=== PATIENT | female | born 1940 | race Caucasian/White ===

== ENCOUNTER 2024-01-14 14:11 | Emergency (ER) | payer OTHER ==
--- NOTE | 2024-01-14 14:47 | RAD REPORT ---
EXAM DESCRIPTION: CT - Head Brain Wo Cont - 01/14/2024 2:38 pm CLINICAL HISTORY: SYNCOPE Headache COMPARISON: No comparisons TECHNIQUE: All CT scans are performed using dose optimization technique as appropriate and may inclu de automated exposure control or mA/KV adjustment according to patient size. FINDINGS: Along the anterior falx is there is a 4.0 x 3.9 cm slightly hyperdense mass is present wit h significant surrounding edema in the anterior frontal lobes.There is mild pjgj-[id number] midline bigg ft present measuring 8 mm. No hemorrhage or hydrocephalus. The paranasal sinuses and mastoids are clear. The calvarium is intact. IMPRESSION: Midline anterior 4 cm intracranial mass is seen with moderate surrounding edema and mild [id number] midline shift of 8 mm. This may represent a meningioma, however MRI of the brain with contrast would be recommended for further evaluation. No hemorrhage or hydrocephalus evident.
--- NOTE | 2024-01-14 15:00 | RAD REPORT ---
EXAM DESCRIPTION: RAD - Chest Single View - 01/14/2024 2:52 pm CLINICAL HISTORY: syncope, right shoulder Chest pain. COMPARISON: No comparisons FINDINGS: Portable technique limits examination quality. The lungs are grossly clear. The heart is mildly enlarged. Fracture of the distal right clavicle susp ected.
--- NOTE | 2024-01-14 15:00 | RAD REPORT ---
EXAM DESCRIPTION: RAD - Shoulder Right 2 View - 01/14/2024 2:52 pm CLINICAL HISTORY: fall trauma COMPARISON: <Comparisons> FINDINGS: Fracture of the distal right clavicle is seen, without dislocation. Bones are mildly demin eralized.
[2024-01-14 15:18] LABS: Absolute Eosinophils 0.1 K/uL (0-0.5); Absolute Lymphocytes (CBC) 0.9 K/uL (0.7-4.9); Absolute Monocytes 0.8 K/uL (0.1-1.3); Absolute Neutrophil 11.5 K/uL (1.8-8.0); Basophils % 0.2 % (0-1.3); Eosinophils % 0.4 % (0-4.4); Hematocrit 39.1 % (36.0-45.0); Hemoglobin 12.2 g/dL (12.0-15.0); Lymphocytes % 6.8 % (15.3-44.8); MCH 21.7 pg (27.0-35.0); MCHC 31.2 g/dL (32.0-36.0); MCV 69.6 fL (80-100); MPV 8.7 fL (7.6-11.3); Monocytes % 6.2 % (3.3-12.3); Neutrophils % 86.4 % (41.7-73.7); Nucleated Red Blood Cells % 0.1 % (0-0); Platelets 191 thou/uL (152-406); RBC Red Blood Cell Count 5.62 M/uL (3.86-4.86); Red Cell Distribution Width 16.4 % (12.1-15.2)
[2024-01-14 15:23] LABS: PT Prothrombin Time 12.4 SECONDS (9.4-12.5); Protime INR 1.11
[2024-01-14 15:39] LABS: AST/SGOT 11 U/L (15-37); Albumin 3.7 g/dL (3.4-5.0); Albumin/Globulin Ratio 1.2 (1.1-1.8); Alkaline Phosphatase 53 U/L (45-117); Anion Gap 7.8 mEq/L (5.0-15.0); BUN Blood Urea Nitrogen 18 mg/dL (7-18); Bicarbonate 30 mEq/L (21-32); Bilirubin Direct 0.4 mg/dL (0-0.2); Bilirubin Indirect, Calculated 1.1 mg/dL (0.2-0.8); Bilirubin Total 1.5 mg/dL (0.2-1.0); Globulin 3.2 g/dL (2.3-3.5); Glomerular Filtration Rate 52 ml/min (=/>90); Glucose Level 127 mg/dL (74-106); Magnesium 1.9 mg/dL (1.6-2.4); Potassium 3.8 mEq/L (3.5-5.1); Protein, Total 6.9 g/dL (6.4-8.2); Sodium Level 140 mEq/L (136-145); Troponin High Sensitivity 9.6 pg/mL (<58.9)
[2024-01-14 15:50] LABS: ALT/SGPT < 14 U/L (13-56)
[2024-01-14 16:03] LABS: Anisocytosis 1+; Blood Morphology Comment NOTED (NOT SEEN); Hypochromasia 1+; Platelet Estimate ADEQ; Poikilocytosis 1+; White Blood Cell Scan OK (OK)
--- NOTE | 2024-01-14 16:32 | ER ---
Nurse's Notes [facility] Name: Sharron Sweeney Age: 83 yrs Sex: Female : 1940 Arrival Date: 01/14/2024 Time: 14:11 Bed 7 Private MD: Diagnosis: Syncope, right clavicle fracture nondisplaced, known beta thalassemia Presentation: 01/13 14:19 Chief complaint: EMS states: toned out for syncopal episode. Sitting at desk and became me1 dizzy and passed out. c/o pain to right shoulder. Bruise noted above right eye. 20g LAC given zofran 4 mg by EMS. Coronavirus screen: Vaccine status: Patient reports receiving the 2nd dose of the covid vaccine. Ebola Screen: No symptoms or risks identified at this time. Initial Sepsis Screen: Does the patient meet any 2 criteria? No. Patient's initial sepsis screen is negative. Does the patient have a suspected source of infection? No. Patient's initial sepsis screen is negative. Risk Assessment: Do you want to hurt yourself or someone else? Patient reports no desire to harm self or others. Onset of symptoms was January 14, 2024. 14:19 Method Of Arrival: EMS: [email or web address] [place] Acuity: ZACARIAS 3 me1 Triage Assessment: 14:23 General: Appears uncomfortable, well groomed, well developed, well nourished, Behavior me1 is calm, cooperative, appropriate for age. Pain: Complains of pain in anterior aspect of right shoulder Pain does not radiate. Pain currently is 0 out of 10 on a pain scale. at worst was 6 out of 10 on a pain scale. Quality of pain is described as sharp, Pain began suddenly, Is continuous. EENT: No signs and/or symptoms were reported regarding the EENT system. Neuro: Level of Consciousness is awake, alert, obeys commands, Oriented to person, place, time, situation, Appropriate for age Reports dizziness, and diaphoresis right before passing out onto the floor from a sitting position a syncopal episode. Cardiovascular: Patient's skin is warm and dry. Respiratory: Airway is patent Respiratory effort is even, unlabored, Respiratory pattern is regular, symmetrical. GI: No signs and/or symptoms were reported involving the gastrointestinal system. : No signs and/or symptoms were reported regarding the genitourinary system. Derm: Skin is intact, is healthy with good turgor, Skin is pink, warm \T\ dry. Musculoskeletal: Reports pain in right shoulder. Injury Description: fall onto floor from sitting. Historical: - Allergies: 14:23 Codeine; me1 - PMHx: 14:23 Hypertensive disorder; me1 14:23 carotid artery stenosis; me1 - PSHx: 14:23 Coronary Angioplasty; ankle surgery; Cholecystectomy; me1 - Immunization history:: Adult Immunizations up to date. - Infectious Disease History:: Denies. - Social history:: Smoking status: Patient denies any tobacco usage or history of. Screenin:27 [facility] ED Fall Risk Assessment (Adult) History of falling in the last 3 months, ia1 including since admission Yes- physiologic fall (2 pts) Confusion or Disorientation Intoxicated or Sedated No (0 pts) Impaired Gait No (0 pts) Mobility Assist Device Used No (0 pt) Altered Elimination No (0 pt) Score/Fall Risk Level 0 - 2 = Low Risk Maintained a safe environment, Provided non-skid footwear, Hourly rounding (assess needs \T\ fall precautionary measures) done. Abuse screen: Denies threats or abuse. Nutritional screening: No deficits noted. Tuberculosis screening: No symptoms or risk factors identified. Assessment: 14:27 General: See triage assessment. . me1 15:01 Reassessment: Patient and/or family updated on plan of care and expected duration. Pain rs5 level reassessed. Patient is alert, oriented x 3, equal unlabored respirations, skin warm/dry/pink. Patient states feeling better. Patient states symptoms have improved. Pain: Complains of pain in right shoulder Pain currently is 3 out of 10 on a pain scale. Quality of pain is described as aching, Is continuous. Neuro: Level of Consciousness is awake, alert, obeys commands, Oriented to person, place, time, situation. Cardiovascular: Patient's skin is warm and dry. Rhythm is regular. Respiratory: Airway is patent Respiratory effort is even, unlabored, Respiratory pattern is regular, symmetrical. GI: Abdomen is round non-distended. : No signs and/or symptoms were reported regarding the genitourinary system. EENT: No signs and/or symptoms were reported regarding the EENT system. Derm: Skin is intact, Skin is pink, warm \T\ dry. Musculoskeletal: Range of motion: limited in right shoulder. 16:01 Reassessment: Patient and/or family updated on plan of care and expected duration. Pain rs5 level reassessed. Patient is alert, oriented x 3, equal unlabored respirations, skin warm/dry/pink. 17:00 Reassessment: No changes from previously documented assessment. rs5 Vital Signs: 14:19 BP 169 / 63; Pulse 60; Resp 16; Temp 97.5; Pulse Ox 98% on R/A; Weight 65.77 kg; Height me1 5 ft. 0 in. ; Pain 6/10; 15:30 BP 178 / 62; Pulse 66; Resp 17; Pulse Ox 96% on R/A; me1 16:00 BP 172 / 63; Pulse 64; Resp 16; Pulse Ox 97% ; me1 16:30 BP 175 / 64; Pulse 67; Resp 16; Temp 98.1; Pulse Ox 100% on R/A; me1 14:19 Body Mass Index 28.32 (65.77 kg, 152.4 cm) me1 14:19 Pain Scale: Adult me1 ED Course: 14:19 Patient arrived in ED. me1 14:22 Lola Preciado MD is Attending Physician. sp3 14:23 Triage completed. me1 14:23 Arm band placed on Patient placed in an exam room. me1 14:27 Patient has correct armband on for positive identification. Bed in low position. Call me1 light in reach. Side rails up X2. Provided Education on: POC. Verbalized understanding. . Client placed on continuous cardiac and pulse oximetry monitoring. NIBP monitoring applied. youth nutritional monitor on. Pulse ox on. NIBP on. 14:27 Warm blanket given. me1 14:27 No provider procedures requiring assistance completed. Maintain EMS IV. Dressing me1 intact. Good blood return noted. Site clean \T\ dry. Gauge \T\ site: 20 g LAC. Flushed with 10 mL NS. 14:36 Carlos Mary, RN is Primary Nurse. rs5 14:40 CT Head Brain wo Cont In Process Unspecified. EDMS 14:53 Chest Single View XRAY In Process Unspecified. EDMS 14:53 Shoulder Right (2 View) XRAY In Process Unspecified. EDMS 16:24 pt daughter....[phone]. bd 17:00 IV discontinued, intact, bleeding controlled, No redness/swelling at site. Pressure rs5 dressing applied. Administered Medications: No medications were administered Medication: 14:27 VIS not applicable for this client. me1 Outcome: 16:32 Discharge ordered by . sp3 17:00 Patient left the ED. rs5 17:00 Discharged to home ambulatory, rs5 17:00 Condition: stable 17:00 Discharge instructions given to patient, family, Instructed on discharge instructions, follow up and referral plans. medication usage, Demonstrated understanding of instructions, follow-up care, medications, Prescriptions given X 2, Signatures: Dispatcher [employer] EDMS Lynn Hooper Setul, MD MD sp3 Carlos Mary RN RN rs5 Marie Sow RN RN me1
--- NOTE | 2024-01-14 16:33 | EDPHYS ---
Physician Documentation [facility] Name: Sharron Sweeney Age: 83 yrs Sex: Female : 1940 Arrival Date: 01/14/2024 Time: 14:11 Bed 7 Private MD: ED Physician Lola Preciado HPI: 01/13 14:29 This 83 yrs old Female presents to ER via EMS with complaints of Syncope, Fall Injury. sp3 14:29 83-year-old female with a history of hypertension, carotid artery disease with 100% sp3 occlusion on the right side and 50% on the left side now presents with a chief complaint syncopal episode after belching. Patient states she has had increased belching and abdominal cramping off and on for the last week. Today she sat down at her computer where she had a few belching episodes and then became diaphoretic and states that she "passed out" and ended up on the floor. She came to a few seconds later back to baseline and activated EMS/911 who arrived to find patient in no acute distress with stable vital signs and transported here without difficulty. Patient did have 1 episode of "dizziness" and route in the ambulance however she does not have any symptoms now. She denies any medical prodrome prior to the event other than the diaphoresis. She denies ever having or currently having headache, neck pain, facial pain, fever, cough, URI symptoms, chest pain, shortness of breath, abdominal pain other than the cramping off and on with the bulging, CORRECTIONS CASEWORKER symptoms symptoms, rash, known sick contacts, travel history, or any other signs or symptoms on ROS at this time.. Historical: - Allergies: 14:23 Codeine; me1 - PMHx: 14:23 Hypertensive disorder; me1 14:23 carotid artery stenosis; me1 - PSHx: 14:23 Coronary Angioplasty; ankle surgery; Cholecystectomy; me1 - Immunization history:: Adult Immunizations up to date. - Infectious Disease History:: Denies. - Social history:: Smoking status: Patient denies any tobacco usage or history of. ROS: 14:33 Constitutional: Negative for fever, chills, and weight loss, Eyes: Negative for injury, sp3 pain, redness, and discharge, ENT: Negative for injury, pain, and discharge, Neck: Negative for injury, pain, and swelling, Respiratory: Negative for shortness of breath, cough, wheezing, and pleuritic chest pain, Back: Negative for injury and pain, MS/Extremity: Negative for injury and deformity, Skin: Negative for injury, rash, and discoloration, Psych: Negative for depression, anxiety, suicide ideation, homicidal ideation, and hallucinations, Allergy/Immunology: Negative for hives, rash, and allergies, Endocrine: Negative for neck swelling, polydipsia, polyuria, polyphagia, and marked weight changes, Hematologic/Lymphatic: Negative for swollen nodes, abnormal bleeding, and unusual bruising, 14:33 All other systems are negative, Exam: 14:33 Constitutional: This is a well developed, well nourished patient who is awake, alert, sp3 and in no acute distress. Head/Face: Normocephalic, atraumatic. Eyes: Pupils equal round and reactive to light, extra-ocular motions intact. Lids and lashes normal. Conjunctiva and sclera are non-icteric and not injected. Cornea within normal limits. Periorbital areas with no swelling, redness, or edema. ENT: Nares patent. No nasal discharge, no septal abnormalities noted. External auditory canals are clear. Oropharynx with no redness, swelling, or masses, exudates, or evidence of obstruction, uvula midline. Mucous membranes moist. Neck: Trachea midline, no thyromegaly or masses palpated, and no cervical lymphadenopathy. Supple, full range of motion without nuchal rigidity, or vertebral point tenderness. No Meningismus. Chest/axilla: Normal chest wall appearance and motion. Nontender with no deformity. No lesions are appreciated. Cardiovascular: Regular rate and rhythm with a normal S1 and S2. No gallops, murmurs, or rubs. Normal PMI, no JVD. No pulse deficits. Respiratory: Lungs have equal breath sounds bilaterally, clear to auscultation and percussion. No rales, rhonchi or wheezes noted. No increased work of breathing, no retractions or nasal flaring. Abdomen/GI: Soft, non-tender, with normal bowel sounds. No distension or tympany. No guarding or rebound. No evidence of tenderness throughout. Back: No spinal tenderness. No costovertebral tenderness. Full range of motion. Skin: Warm, dry with normal turgor. Normal color with no rashes, no lesions, and no evidence of cellulitis. Neuro: Awake and alert, GCS 15, oriented to person, place, time, and situation. Cranial nerves II-XII grossly intact. Motor strength 5/5 in all extremities. Sensory grossly intact. Cerebellar exam normal. Normal gait. Psych: Awake, alert, with orientation to person, place and time. Behavior, mood, and affect are within normal limits. 14:33 ECG was reviewed by the Attending Physician. EKG demonstrates normal sinus rhythm at 60 bpm with normal intervals, normal QRS, normal axis, normal ST's ST segments without evidence of acute ischemia. 14:33 Musculoskeletal/extremity: Patient has pain to palpation on the right shoulder without obvious crepitus. Patient did states she landed on her right shoulder when she fell.. Vital Signs: 14:19 BP 169 / 63; Pulse 60; Resp 16; Temp 97.5; Pulse Ox 98% on R/A; Weight 65.77 kg; Height me1 5 ft. 0 in. ; Pain 6/10; 15:30 BP 178 / 62; Pulse 66; Resp 17; Pulse Ox 96% on R/A; me1 16:00 BP 172 / 63; Pulse 64; Resp 16; Pulse Ox 97% ; me1 16:30 BP 175 / 64; Pulse 67; Resp 16; Temp 98.1; Pulse Ox 100% on R/A; me1 14:19 Body Mass Index 28.32 (65.77 kg, 152.4 cm) me1 14:19 Pain Scale: Adult me1 MDM: 14:22 Patient medically screened. sp3 14:39 Data reviewed: vital signs, nurses notes, EMS record, old medical records, lab test sp3 result(s), EKG, radiologic studies. ED course: 83-year-old female with carotid artery disease and syncopal episode now resolved. No medical prodrome other than diaphoresis after belching. Differential diagnosis includes vasovagal syncope, orthostatic hypotension, and to a lesser degree TIA/CVA spectrum, other intracranial pathology, among others. Workup will include CT scan of the head, EKG, laboratory values and x-rays of the right shoulder due to some pain there after landing on it when she fell. Patient currently with normal vital signs and in no acute distress. Probable discharge home if workup is negative.. 16:30 ED course: CT head normal. Clavicle fracture demonstrated on shoulder x-ray on the sp3 right distal side nondisplaced. Further history now from patient elucidates thalassemia which explains patient's bilirubin and anemia. Given his new history and normal remainder of the workup with now normal status of the patient, we will safely discharge patient home. I believe patient had a vasovagal episode. I will send her home on nausea medicine ondansetron ODT for further nausea symptoms she may have. She is slated to follow-up with Dr. kyle ROGERS already. She will keep that appointment.. 01/13 14:23 Order name: Basic Metabolic Panel; Complete Time: 16:19 sp3 01/13 14:23 Order name: CBC with Diff; Complete Time: 16:19 sp3 01/13 14:23 Order name: Hepatic Function; Complete Time: 16:19 sp3 01/13 14:23 Order name: Magnesium; Complete Time: 16:19 sp3 01/13 14:23 Order name: Protime (+inr); Complete Time: 15:46 sp3 01/13 14:23 Order name: Troponin High Sensitivity; Complete Time: 16:19 sp3 01/13 15:24 Order name: CBC Smear Scan; Complete Time: 16:19 EDMS 01/13 14:23 Order name: CT Head Brain wo Cont; Complete Time: 15:08 sp3 01/13 14:23 Order name: Chest Single View XRAY; Complete Time: 15:08 sp3 01/13 14:23 Order name: Shoulder Right (2 View) XRAY; Complete Time: 15:08 sp3 01/13 14:23 Order name: Cardiac monitoring; Complete Time: 14:47 sp3 01/13 14:23 Order name: EKG - Nurse/Tech; Complete Time: 14:47 sp3 01/13 14:23 Order name: IV Saline Lock; Complete Time: 14:28 sp3 01/13 14:23 Order name: Labs collected and sent; Complete Time: 14:47 sp3 01/13 14:23 Order name: NPO; Complete Time: 14:29 sp3 01/13 14:23 Order name: O2 Per Protocol; Complete Time: 14:29 sp3 01/13 14:23 Order name: O2 Sat Monitoring; Complete Time: 14:29 sp3 01/13 14:23 Order name: Orthostatics; Complete Time: 14:48 sp3 01/13 16:31 Order name: Sling; Complete Time: 17:03 sp3 Administered Medications: No medications were administered Disposition Summary: 01/14/24 16:32 Discharge Ordered Notes: Location: Home sp3 Condition: Stable sp3 Diagnosis - Syncope, right clavicle fracture nondisplaced, known beta thalassemia sp3 Followup: sp3 - With: Private Physician - When: Upon discharge from the Emergency Department - Reason: Continuance of care Discharge Instructions: - Discharge Summary Sheet sp3 - Clavicle Fracture sp3 - Syncope sp3 Forms: - Medication Reconciliation Form sp3 - Antibiotic Education sp3 - Prescription Opioid Use sp3 - Patient Portal Instructions sp3 - Leadership Thank You Letter sp3 Prescriptions: - Zofran 4 mg Oral Tablet - take 1 tablet ORAL route every 12 hours As needed; 20 tablet; Refills: 0, sp3 Product Selection Permitted - Diclofenac Sodium 75 mg Oral Tablet Sustained Release - take 1 tablet ORAL route 2 times per day; 30 tablet; Refills: 0, Product sp3 Selection Permitted Signatures: Dispatcher [employer] Lola Camejo MD MD sp3 Marie Sow, RN RN me1 Corrections: (The following items were deleted from the chart) 14:24 14:24 Shoulder Right 2 View+[email or web address] ordered. KRISTAN RUSHING
[2024-01-14 17:20] VITALS: BP 175/64; TEMP 98.1; O2SAT 100
--- NOTE | 2024-01-19 18:03 | EKG ---
Test Date: 2024-01-14 Test Time: 14:31:21 Curing Oven Tender: LAUREN MEASUREMENT RESULTS: Intervals: Rate: 59 [place]: 182 QRSD: 92 QT: 462 QTc: 457 [place]: P: 55 [place]: 182 QRS: 90 T: 86 INTERPRETIVE STATEMENTS: Sinus bradycardia ST abnormality, possible digitalis effect Abnormal ECG Compared to ECG 04/01/2006 14:23:00 Sinus rhythm no longer present ST (T wave) deviation still present Electronically Signed On 01-19-24 17:52:30 CDT by Adolfo Castillo
== END 2024-01-14 17:00 | disposition home or self-care (01) ==
LOC: ER 14:11
DX: R55 Syncope and collapse (principal); S42.001A Fracture of unspecified part of right clavicle, initial encounter for closed fracture; W07.XXXA Fall from chair, initial encounter; I65.23 Occlusion and stenosis of bilateral carotid arteries; D56.1 Beta thalassemia; I10 Essential (primary) hypertension; Z98.61 Coronary angioplasty status; Z88.5 Allergy status to narcotic agent; Z90.49 Acquired absence of other specified parts of digestive tract
CPT/HCPCS: 36415; 70450; 71045; 80048; 80076; 83735; 84484; 85025; 85610; 93005; 99284